=== PATIENT | female | born 1985 | race Caucasian/White ===

== ENCOUNTER → 2016-07-31 | Outpatient (CLI) | payer BC ==
[2016-07-31 08:54] LABS: CH 31.4; CHCM 34.1; HCT 34.7 % (34.0-46.0); HDW 3.18; HGB 11.6 gm/dL (11.4-16.0); MCH 31.1 pg (25.0-35.0); MCHC 33.5 g/dL (31.0-37.0); MCV 92.8 fL (80.0-100.0); Mean Platelet Volume 7.5; RBC 3.74 m/uL (3.80-5.40); RDW 14.6 % (11.5-15.5); WBC 5.3 k/uL (3.8-10.6)
== END | disposition home or self-care (01) ==
LOC: LABWHC1 07:17
PROVIDERS: ATTEND Obstetrics & Gynecology
DX: Z34.92 Encounter for supervision of normal pregnancy, unspecified, second trimester (principal); Z3A.00 Weeks of gestation of pregnancy not specified
CPT/HCPCS: 36415; 82950; 85027; 86850; 86870; 86880

== ENCOUNTER → 2016-09-01 | Outpatient (CLI) | payer BC | END | disposition home or self-care (01) | LOC: LABWHC1 09:48 | PROVIDERS: ATTEND Obstetrics & Gynecology | DX: Z34.83 Encounter for supervision of other normal pregnancy, third trimester (principal); Z3A.00 Weeks of gestation of pregnancy not specified | CPT/HCPCS: 86850; 86870; 86880 ==

== ENCOUNTER → 2016-10-13 | Outpatient (CLI) | payer BC ==
--- NOTE | 2016-10-13 17:05 | US ---
EXAMINATION TYPE: US OB anatomy transabd DATE OF EXAM: 10/13/2016 4:42 PM COMPARISON: NONE HISTORY: Large for Dates 3rd trimester O36.63X0 TECHNIQUE: EXAM MEASUREMENTS: GESTATIONAL AGE / DATING Physician Established: (35 weeks/3 days) EDC: 11/13/2016 Dates by LMP: (35 weeks/3 days) EDC: 11/13/2016 Dates by First Scan: (35 weeks/1 days) EDC: 11/16/2016 Dates by Current Scan for: (36 weeks/1 days) EDC: 11/09/2016 SURVEY IUP: Single PLACENTA: Anterior PREVIA: No previa LEONIDAS: 13.8 cm Normal CERVICAL LENGTH (transabdominal: norm > 3.0cm): 4.1 cm BIOMETRY PRESENTATION: Vertex BPD: 8.8 cm 35 weeks / 4 days HC: 32.5 cm 36 weeks / 6 days AC: 32.7 cm 36 weeks / 5 days FL: 3.9 cm 35 weeks / 3 days ESTIMATED WEIGHT IN GRAMS: 2879 grams ESTIMATED WEIGHT IN LBS/OZS: 6 lbs. 6 oz. WEIGHT PERCENTAGE BASED ON ESTABLISHED DATE: 71 % HC/AC: .9 normal FL/AC: 21% normal HEART RATE: 130 bpm RHYTHM: Normal ANATOMY SEEN (within normal limits): Midline Falx Cavus Septi Pellucidi Four Chamber Heart Outflow tracts: LVOT/RVOT Stomach Situs Nose / Lips Diaphragm Kidneys (bilateral) Bladder Three Vessel Cord Longitudinal Spine Transverse Spine ANATOMY NOT SEEN: * Lateral Vent (< 1 cm) cm * Cisterna Magna (< 1.1 cm) cm * Nuchal Fold (< 0.6 cm) cm * Cerebellum (varies with age) cm Choroid Plexus (bilateral) Cord Insert Arms (bilateral) Legs (bilateral) IMPRESSION: limited anatomy scan due to advanced gestational age, position, and crowding.Growth according t o dates.
== END | disposition home or self-care (01) ==
LOC: RADUSWWP 16:12
PROVIDERS: ATTEND Obstetrics & Gynecology
DX: O36.63X0 Maternal care for excessive fetal growth, third trimester, not applicable or unspecified (principal); Z3A.36 36 weeks gestation of pregnancy
CPT/HCPCS: 76811

== ENCOUNTER 2016-11-04 19:22 | Inpatient (IN) | payer BC ==
[2016-11-04] MEDS ORDERED: LIDOCAINE 1% 20 ML VIAL (10MG/ML) FOR IV START INTRADERMA PRN (20:15)
[2016-11-04] MEDS ORDERED: TERBUTALINE 1 MG/ML VIAL SQ PRN (20:15)
[2016-11-04] MEDS ORDERED: OXYTOCIN 10 UNIT/ML 1 ML VIAL IM PRN (20:15)
[2016-11-04] MEDS ORDERED: LIDOCAINE 1% (PF) 10 MG/ML (30 ML SDV) SQ PRN (20:15)
[2016-11-04] MEDS ORDERED: OXYTOCIN 20 UNITS/1000 ML NS 1,000 ML IV SCH ×2 (20:15→23:45)
[2016-11-04] MEDS ORDERED: LACTATED RINGERS 1,000 ML IV SCH ×2 (20:15→20:30)
[2016-11-04] MEDS ORDERED: CARBOPROST TROMETHAMINE 250 MCG/ML 1 ML AMP IM PRN (20:15)
[2016-11-04] MEDS ORDERED: METHYLERGONOVINE 0.2 MG/ML 1 ML AMP IM PRN (20:15)
[2016-11-04] MEDS ORDERED: AMPICILLIN 2,000 MG in SODIUM CHLORIDE 0.9% 100 ML IVPB STA (20:24)
[2016-11-04 20:37] LABS: Basophils % (A) 1 %; CH 30.9; Eosinophils # (A) 0.1 k/uL (0-0.7); Eosinophils % (A) 1 %; HCT 38.3 % (34.0-46.0); HDW 3.17; HGB 12.8 gm/dL (11.4-16.0); Luc # (Auto) 0.14; Luc % (Auto) 2; Lymphocytes # (A) 1.5 k/uL (1.0-4.8); Lymphocytes % (A) 20 %; MCH 30.5 pg (25.0-35.0); MCHC 33.4 g/dL (31.0-37.0); MCV 91.3 fL (80.0-100.0); Mean Platelet Volume 7.3; Monocytes # (A) 0.3 k/uL (0-1.0); Monocytes % (A) 5 %; Neutrophils # (A) 5.5 k/uL (1.3-7.7); Neutrophils % (A) 72 %; RDW 15.5 % (11.5-15.5); WBC 7.6 k/uL (3.8-10.6); WBC (Perox) 7.78
--- NOTE | 2016-11-04 20:42 | P.HPOB ---
History of Present Illness H&P Date: 11/04/16 Chief Complaint: Contractions. This patient is a pleasant 31-year-old 5 para 3 female estimated date of confinement 11/13/2016 estimated gestational age 38-5/7 weeks who presents to labor and delivery complaining of contractions. Patient's cervix 4 cm dilated in the office and now 8 cm dilated thought to be in active labor. care is per Dr. Frias appears to be complicated by positive group B strep culture. Review of Systems Constitutional: Denies chills, Denies fever Eyes: denies blurred vision, denies pain Ears, nose, mouth and throat: Denies headache, Denies sore throat Cardiovascular: Denies chest pain, Denies shortness of breath Respiratory: Denies cough Gastrointestinal: Reports heartburn Genitourinary: Reports Menstruation: Reports amenorrhea Neurological: Denies numbness, Denies weakness Past Medical History Additional Past Medical History / Comment(s): Patient is a history of migraine headaches. Patient had 3 previous vaginal deliveries. History of Any Multi-Drug Resistant Organisms: None Reported Past Surgical History: Orthopedic Surgery Additional Past Surgical History / Comment(s): LEEP, laparoscopy, knee 2003, shoulder 2001 Past Anesthesia/Blood Transfusion Reactions: No Reported Reaction Past Psychological History: No Psychological Hx Reported Smoking Status: Never smoker Past Alcohol Use History: None Reported Past Drug Use History: None Reported - Past Family History Mother Family Medical History: CVA/TIA, Diabetes Mellitus Medications and Allergies Home Medications Medication Instructions Recorded Confirmed Type Zed-Hecd-Myaar Acid 1 each PO DAILY 03/28/14 11/04/16 History [-U Capsule] Allergies Allergy/AdvReac Type Severity Reaction Status Date / Time sulfamethoxazole Allergy Rash/Hives Verified 06/22/15 19:21 [From Bactrim] trimethoprim [From Bactrim] Allergy Rash/Hives Verified 06/22/15 19:21 Exam - Vital Signs Vital signs: Intake and Output 11/04/16 11/04/16 11/04/16 06:59 14:59 22:59 Other: Weight 63.957 kg Patient Weight 11/05/16 06:59 Weight 63.957 kg - OBG Physical Exam Abdomen: bowel sounds normal, no diffuse tenderness, no bruit present, no guarding noted, no hepatomegaly, no splenomegaly, no mass Vulva: both: normal Vagina: normal moisture, no discharge Cervix: Cervix is 8 cm dilated and 80% effaced. Cervix: no discharge Uterus: enlarged (Fundal height is consistent with a term .) Results blood work shows she is a negative, rubella immune, RPR nonreactive, hepatitis B negative, HIV is nonreactive. Ultrasounds have been normal. Group B strep was positive. RhoGAM was given on September 10. Assessment and Plan (1) Normal labor Narrative/Plan: This is a pleasant 31-year-old 5 para 3 female 38-5/7 weeks' gestation in active labor. Plan is a positive group B strep culture. Plan is antibiotic prophylaxis and anticipate normal spontaneous vaginal delivery. Status: Acute (2) Third trimester Status: Acute (3) Group B streptococcal carriage complicating Status: Acute (4) Rh negative status during Status: Acute
[2016-11-04 20:44] VITALS: BMI 28.5
--- NOTE | 2016-11-04 22:45 | P.PN ---
Progress Note - Text Patient's heart tones are reassuring. She has been at 8 cm for approximately 2 hours. head is still -2 station. In reviewing her records it appears she had a severe shoulder dystocia with her previous delivery. This was done by Dr. Mercado and did require Ave, and ultimately a wood screw her for delivery. This infant does appear larger than her last infant. She is 4 foot 11 and has risk factors for a repeat shoulder dystocia. I have recommended she proceed at this time with section due to the significant risks. Patient wishes to proceed is also requesting tubal ligation at this time.
[2016-11-04] MEDS ORDERED: CITRIC ACID-SODIUM CITRATE 15 ML CUP PO ONE (22:49)
[2016-11-04] MEDS ORDERED: MORPHINE SULFATE (PF) 0.3 MG/0.3 ML SYR ONE (22:52)
[2016-11-04] MEDS ORDERED: ceFAZolin 1,000 MG VIAL ONE (22:52)
[2016-11-04] MEDS ORDERED: ONDANSETRON 4 MG/2 ML VIAL ONE (22:52)
[2016-11-04] MEDS ORDERED: OXYTOCIN 10 UNIT/ML 1 ML VIAL ONE (22:52)
[2016-11-04] MEDS ORDERED: NALBUPHINE 10 MG/ML AMPUL ONE (22:52)
[2016-11-04] MEDS ORDERED: MORPHINE SULFATE 4 MG/ML SYRINGE IVP PRN (23:14)
[2016-11-04] MEDS ORDERED: KETOROLAC 30 MG/ML 1 ML VIAL IVP PRN (23:14)
[2016-11-04] MEDS ORDERED: NALOXONE 0.4 MG/ML 1 ML VIAL IV PRN ×2 (23:14→23:40)
[2016-11-04] MEDS ORDERED: ONDANSETRON 4 MG/2 ML VIAL IVP PRN ×2 (23:14→23:40)
[2016-11-04] MEDS ORDERED: NALBUPHINE 10 MG/ML AMPUL IV PRN (23:14)
[2016-11-04] MEDS ORDERED: diphenhydrAMINE 50 MG/ML 1 ML VIAL IVP PRN ×2 (23:14→23:40)
[2016-11-04] MEDS ORDERED: Acetaminophen-Codeine 300-30mg TAB PO PRN (23:40)
[2016-11-04] MEDS ORDERED: METOCLOPRAMIDE 5 MG/ML 2 ML VIAL IVP PRN (23:40)
[2016-11-04] MEDS ORDERED: ACETAMINOPHEN TAB 325 MG TAB PO PRN (23:40)
[2016-11-04] MEDS ORDERED: SIMETHICONE 80 MG CHEWABLE PO PRN (23:40)
[2016-11-04] MEDS ORDERED: diphenhydrAMINE 25 MG CAP PO PRN (23:40)
[2016-11-04] MEDS ORDERED: ZOLPIDEM 5 MG TAB PO PRN (23:40)
[2016-11-04] MEDS ORDERED: Rhogam IMMUNE GLOBULIN 1,500 UNIT/1 ML IM ONE (23:40)
[2016-11-05] MEDS: LACTATED RINGERS 1,000 ML IV SCH ×3 (00:40→17:05)
[2016-11-05] MEDS: ceFAZolin 2 GM in SODIUM CHLORIDE 0.9% 100 ML IVPB SCH ×2 (00:48→07:53)
[2016-11-05] MEDS ORDERED: AMPICILLIN 1,000 MG in SODIUM CHLORIDE 0.9% 50 ML IVPB SCH (01:00)
--- NOTE | 2016-11-05 01:07 | P.OP ---
Date of Procedure: 11/04/16 Preoperative Diagnosis: #1: 38-5/7 weeks . #2: Active labor #3: Failure to descend. #4: Previous with severe shoulder dystocia and significant risk factors for repeat shoulder dystocia #5: Multi parity desires permanent sterilization. Postoperative Diagnosis: #1: Same #2: Straight occiput posterior presentation. #3: Nuchal cord 1. Procedure(s) Performed: #1: Primary low transverse section. #2: Bilateral partial salpingectomy. Anesthesia: spinal Surgeon: Brock Estrada Medicine Man #1: Marge Camacho Estimated Blood Loss (ml): 800 Pathology: other (Placenta and bilateral fallopian tube segments) Condition: stable Disposition: floor Indications for Procedure: Please see dictated H&P for intimate details of this patient's admission. In brief summary this is a pleasant 31-year-old 5 para 3 female 38-5/7 weeks gestation who is admitted to labor and delivery in active labor. On admission patient is 8 cm dilated and does not progress over the span of approximately 2 hours with the head stayed at -2 station. In reviewing the patient's records and talking to her it appears that she did have a severe shoulder dystocia with her last delivery with Dr. Garcia and this did require multiple maneuvers including Ave and Salas screw maneuver to deliver the baby. This infant's weight was 7 lbs. 2 oz. and based on the patient's ultrasound that she had approximately 3 weeks ago this is at least that large. Discussed this in detail with the patient and her and recommended they proceed with section at this time due to multiple risk factors for shoulder dystocia and given her labor suggested failure to descent at this time. Patient understands that unfortunately a shoulder dystocia is unpredictable event however a previous shoulder dystocia has been associated with subsequent shoulder dystocias. Patient understood and wished to proceed. Patient also requests that she have a tubal ligation done at this time. They did understand that this is a permanent procedure however there was a failure rate of approximately 20% procedures done. She understands that surgery itself has risks including risks of infection, bleeding, possible injury to bowel, bladder, vessels, and other organs. She understands the risk of DVT and pulmonary embolism. All the patient's questions are answered and a written consent is obtained. Operative Findings: This was a vigorous viable female infant Apgars were 8 and 9 delivery time was 2305 hrs. Infant was straight occiput posterior presentation with a nuchal cord 1. Description of Procedure: This patient has a Hess catheter placed to straight drain. She is subsequent taken to the operating room where she sat up and spinal anesthetic is administered without incident. With an adequate level of anesthesia she has abdominal prep and drape. Scalpel is then taken and a Pfannenstiel skin incision is then made. A second scalpel is taken down to the fascia and the fascia scored with scalpel. Fascial incision extended bilaterally using the Holliday scissors. Fascia is then dissected sharply off the rectus muscles with the Holliday scissors. Rectus muscles are and the peritoneum is identified and entered sharply. Peritoneal incision extended superior and inferior without difficulty. Bladder blade is then placed. Bladder peritoneum was taken sharply off the lower uterine segment. Scalpels then taken and a low transverse uterine incision is made. Using a hemostat I enter the uterine cavity entered bluntly and there is loss of clear fluid. This is then delivered straight occiput posterior through the incision with fundal pressure. Mouth and nares are bulb suctioned and there is a nuchal cord which is easily reduced. He then have delivery the anterior posterior shoulder and rest this 's body. This is a vigorous viable female infant Apgars are 8 and 9 delivery time is 2305 hrs. After delivery of the the umbilical cord is doubly clamped and cut and appears to be trivascular. The infant is then handed off to the nurses in attendance. The placenta is then manually extracted intact. Uterus is then externalized and the uterine incision is then closed using 0 Vicryl running locked fashion in 2 layers. Excellent hemostasis is noted. Bladder peritoneum was then reapproximated using a 3-0 Vicryl. Then turned my attention to the left fallopian tube and approximately 4 cm from its cornual insertion a small window is made to the mesial salpinx with Bovie cautery. Using a 2-0 silk I doubly ligate a 2 cm segment of the tube. This is excised with the Metzenbaum scissors, the tubal ends are cauterized. Excellent hemostasis is noted. Using a similar technique on the right side a portion of the right fallopian tube is ligated cauterized and removed. With this done excess fluid is removed from the abdomen and pelvis. Uterus placed back into the abdomen. The tubal ends are inspected once again and found to be hemostatic as is the uterine incision. The peritoneum was then identified and closed using 0 Vicryl running fashion. The rectus muscles are reapproximated in 0 Vicryl interrupted fashion. Fascial incision is then closed using an 0 PDS. Fascial incision is intact and hemostatic. Subcutaneous tissues and closed using a 3-0 Vicryl. Skin is and closed using avila. A sterile dressing is then applied. All counts are correct 3. There are no complications. and mother are stable in the delivery room. Cord blood was obtained for Rh status.
[2016-11-05] MEDS: Acetaminophen-Codeine 300-30mg TAB PO PRN (03:26)
[2016-11-05] MEDS: IBUPROFEN 600 MG TAB PO PRN (05:55)
[2016-11-05 06:06] LABS: Basophils % (A) 0 %; CHCM 33.6; Eosinophils % (A) 0 %; HCT 35.6 % (34.0-46.0); HDW 3.14; HGB 11.8 gm/dL (11.4-16.0); Luc # (Auto) 0.15; Luc % (Auto) 1; Lymphocytes # (A) 0.8 k/uL (1.0-4.8); Lymphocytes % (A) 8 %; MCH 30.8 pg (25.0-35.0); MCHC 33.2 g/dL (31.0-37.0); MCV 92.8 fL (80.0-100.0); Mean Platelet Volume 7.3; Monocytes # (A) 0.5 k/uL (0-1.0); Monocytes % (A) 4 %; Neutrophils # (A) 9.4 k/uL (1.3-7.7); Neutrophils % (A) 86 %; RBC 3.83 m/uL (3.80-5.40); RDW 15.6 % (11.5-15.5); WBC 10.9 k/uL (3.8-10.6)
[2016-11-05] MEDS ORDERED: ONDANSETRON 4 MG/2 ML VIAL IVP PRN (07:26)
--- NOTE | 2016-11-05 07:30 | P.PNOBGPC ---
Subjective - Subjective Principal diagnosis: S/P 1*LTCS with TL POD #1 Interval history: Patient seen and examined. She is very nauseous and vomiting. Pain is not very well controlled. I'll be ordering some Toradol and increasing the frequency is her Zofran. : doing well Objective - Vital Signs Latest vital signs: Vital Signs Temp Pulse Resp BP BP Pulse Ox 11/05/16 04:00 97.5 F L 93 18 106/52 97 11/05/16 01:38 96.4 F L 95 18 99/58 98 11/05/16 01:06 96.1 F L 69 18 98/56 97 11/05/16 00:38 96.7 F L 60 18 103/63 97 11/05/16 00:23 96.4 F L 69 18 96/55 95 11/05/16 00:08 96.4 F L 70 18 97/54 99 11/04/16 23:53 96.3 F L 69 18 95/59 99 11/04/16 23:38 96.2 F L 79 18 129/86 100 11/04/16 20:39 97.3 F L 80 16 121/68 11/04/16 19:42 97.3 F L 83 20 121/68 97 Intake and Output 11/04/16 11/05/16 11/05/16 22:59 06:59 14:59 Output Total 1400 Balance -1400 Output: Urine 200 Emesis 400 Estimated Blood Loss 800 Other: Voiding Method Indwelling Catheter Weight 63.957 kg - Exam Lungs: bilateral: normal Chest: Normal S1, Normal S2 Extremities: Present: normal Abdomen: Present: normal appearance, soft. Absent: distention, tenderness Incision: Present: normal, dry, intact Uterus: Present: normal, firm - Labs Labs: Abnormal Lab Results - Last 24 Hours (Table) 11/05/16 Range/Units 05:29 WBC 10.9 H (3.8-10.6) k/uL RDW 15.6 H (11.5-15.5) % Neutrophils # 9.4 H (1.3-7.7) k/uL Lymphocytes # 0.8 L (1.0-4.8) k/uL Assessment and Plan (1) Status post primary low transverse section Narrative/Plan: 1. IV pain medication 2. Antiemetics 3. Continue SCDs Current Visit: Yes Status: Acute Code(s): Z98.891 - HISTORY OF UTERINE SCAR FROM PREVIOUS SURGERY SNOMED Code(s): 273387001 (2) Status post tubal ligation at time of delivery, current hosp Current Visit: Yes Status: Acute Code(s): O80 - ENCOUNTER FOR FULL-TERM UNCOMPLICATED DELIVERY; Z30.2 - ENCOUNTER FOR STERILIZATION SNOMED Code(s): 260979884
--- NOTE | 2016-11-05 09:48 | P.PN ---
Progress Note - Text Postoperative day 1 status post section under spinal anesthesia, and intrathecal morphine given for postoperative analgesia, patiens nausea and vomiting, she had pain , is currently on Motrin and Tylenol 3, there is no anesthesia related complications, further management as per her primary team
[2016-11-05] MEDS: KETOROLAC 30 MG/ML 1 ML VIAL IVP PRN ×3 (11:02→23:08)
[2016-11-05] MEDS: SENNOSIDES-DOCUSATE SODIUM 1 EACH TAB PO SCH ×2 (13:00→20:04)
[2016-11-06] MEDS: Acetaminophen-Codeine 300-30mg TAB PO PRN ×2 (03:15→08:51)
[2016-11-06] MEDS: KETOROLAC 30 MG/ML 1 ML VIAL IVP PRN ×2 (05:05→11:37)
[2016-11-06] MEDS: SENNOSIDES-DOCUSATE SODIUM 1 EACH TAB PO SCH ×2 (08:51→23:31)
--- NOTE | 2016-11-06 10:34 | P.PNOBGPC ---
Subjective - Subjective Principal diagnosis: S/P primary low transverse with tubal ligation postop day #2 Interval history: Patient seen and examined. Denies nausea, vomiting, chest pain, shortness of breath, calf pain or fever chills. Patient reports: Reports appetite normal, Reports voiding normally, Reports pain well controlled, Reports ambulating normally [place]: doing well Objective - Vital Signs Latest vital signs: Vital Signs Temp Pulse Resp BP Pulse Ox 11/06/16 08:00 98 F 78 14 106/71 11/06/16 00:00 98.1 F 64 18 103/47 97 11/05/16 20:00 97.6 F 70 18 99/49 98 11/05/16 16:00 97.5 F L 81 18 107/62 100 11/05/16 12:00 99.0 F 66 16 100/56 Intake and Output 11/05/16 11/06/16 11/06/16 22:59 06:59 14:59 Output Total 650 1000 Balance -650 -1000 Output: Urine 650 1000 Other: Voiding Method Toilet Toilet # Voids 1 1 - Exam Lungs: bilateral: normal Chest: Normal S1, Normal S2 Extremities: Present: normal Abdomen: Present: normal appearance, soft. Absent: distention, tenderness Incision: Present: normal, dry, intact Uterus: Present: normal, firm Assessment and Plan (1) Status post primary low transverse section Current Visit: Yes Status: Acute Code(s): Z98.891 - HISTORY OF UTERINE SCAR FROM PREVIOUS SURGERY SNOMED Code(s): 110996879 (2) Status post tubal ligation at time of delivery, current hosp Narrative/Plan: 1. Increase ambulation 2. Pain control Current Visit: Yes Status: Acute Code(s): O80 - ENCOUNTER FOR FULL-TERM UNCOMPLICATED DELIVERY; Z30.2 - ENCOUNTER FOR STERILIZATION SNOMED Code(s): 897269175
[2016-11-06] MEDS: IBUPROFEN 600 MG TAB PO PRN ×2 (16:17→23:02)
[2016-11-06 23:41] VITALS: TEMP 97.6
[2016-11-07] MEDS: Acetaminophen-Codeine 300-30mg TAB PO PRN (05:15)
[2016-11-07] MEDS: IBUPROFEN 600 MG TAB PO PRN (07:55)
[2016-11-07 08:25] VITALS: BP 103/55; PULSE 67; RESP 16
--- NOTE | 2016-11-07 11:14 | P.DS ---
Providers Date of admission: 11/04/16 20:00 Expected date of discharge: 11/07/16 Attending physician: Danylel Frias Primary care physician: Stated None - Discharge Diagnosis(es) (1) Status post primary low transverse section Current Visit: Yes Status: Acute (2) Status post tubal ligation at time of delivery, current hosp Current Visit: Yes Status: Acute Hospital Course: Patient presented in active labor. She stopped trace at 8 cm. Due to history of a shoulder dystocia with the last she underwent a primary low transverse with tubal ligation. Her postoperative course was uncomplicated. She denies nausea, vomiting, chest pain, shortness of breath or calf pain. Her incision is clean, dry, intact and no erythema or drainage noted. Her pain is well-controlled, she is tolerating regular diet and passing flatus. She'll be discharged home postoperative day #2 in stable condition to follow-up with me in one week. Plan - Discharge Summary New Discharge Prescriptions: Acetaminophen-Codeine 300-30mg [Tylenol w/codeine #3] 2 each PO Q6H PRN #30 tab PRN Reason: Moderate To Severe Pain Ibuprofen [Motrin] 600 mg PO Q6HR PRN #30 tab PRN Reason: Mild Pain Or Fever >= 100.5 Discharge Medication List Jhw-Ytbt-Qxomb Acid [-U Capsule] 1 each PO DAILY 03/28/14 [ History] Acetaminophen-Codeine 300-30mg [Tylenol w/codeine #3] 2 each PO Q6H PRN #30 tab 11/07/16 [Rx] Ibuprofen [Motrin] 600 mg PO Q6HR PRN #30 tab 11/07/16 [Rx] Follow up Appointment(s)/Referral(s): Danyell Frias DO [Doctor of Osteopathic Medicine] - 1 Week Discharge Disposition: HOME SELF-CARE
== END 2016-11-07 12:05 | disposition home or self-care (01) | DRG 766 ==
LOC: FBPOP 19:22 → 4FBP 20:00
PROVIDERS: ADMIT Obstetrics & Gynecology; ATTEND Obstetrics & Gynecology
PROC: 10D00Z1 Extraction of Products of Conception, Low, Open Approach (ICD-10-PCS; principal; 2016-11-04 23:00)
PROC: 0UB70ZZ Excision of Bilateral Fallopian Tubes, Open Approach (ICD-10-PCS; principal; 2016-11-04 23:00)
DX: O62.0 Primary inadequate contractions (principal); O99.824 Streptococcus B carrier state complicating childbirth; O32.4XX0 Maternal care for high head at term, not applicable or unspecified; Z37.0 Single live birth; Z88.2 Allergy status to sulfonamides; O69.81X0 Labor and delivery complicated by cord around neck, without compression, not applicable or unspecified; Z30.2 Encounter for sterilization; Z3A.38 38 weeks gestation of pregnancy; Z67.91 Unspecified blood type, Rh negative
CPT/HCPCS: 59025; 85025; 85461; 88302; 88307; 99213